=== PATIENT | female | born 1995 | race Caucasian/White ===

== ENCOUNTER 2016-10-28 14:59 | Emergency (ER) | payer OTHER ==
[2016-10-28 17:00] LABS: BASOPHIL 0.1 % (0-2); EOSINOPHIL 1.1 % (0-5); MCH 32.9 pg (25.0-31.0); MCV 94.1 fL (78.0-100.0); MONOCYTE 5.4 % (0-12); MPV 10.1 fL (6.0-9.5); NEUTROPHIL 75.4 % (41-80); PLT 259 K/uL (150-400); RBC 4.25 M/uL (4.20-5.40); RDW 12.3 % (11.5-14.0); WBC 9.7 K/uL (4.0-10.5)
[2016-10-28 17:13] LABS: ALBUMIN 4.6 g/dL (3.5-5.0); BILIRUBIN - TOTAL 0.4 mg/dL (0.1-1.0); CREATININE 0.8 mg/dL (0.5-1.0); GLOBULIN (CALCULATION) 2.3 g/dL (2.2-4.2); TOTAL PROTEIN 6.9 g/dL (6.4-8.3)
[2016-10-28 17:41] LABS: BILIRUBIN NEGATIVE (NEGATIVE); BLOOD 1+ Ery/uL (NEGATIVE); CLARITY CLEAR (CLEAR); COLOR YELLOW (YELLOW); GLUCOSE (U) NORMAL (NORMAL); KETONE (U) NEGATIVE (NEGATIVE); LEUKOCYTES NEGATIVE Leu/uL (NEGATIVE); NITRITE NEGATIVE (NEGATIVE); PROTEIN NEGATIVE (NEGATIVE); SPECIFIC GRAVITY 1.015 (1.001-1.030); UROBILINOGEN 0.2 mg/dL (0.2-1.0); pH 7.5 (5.0-9.0)
[2016-10-28 17:57] LABS: BACTERIA TRACE; URINARY WBC RARE
== END 2016-10-28 18:16 | disposition home or self-care (01) ==
LOC: FER 14:59
PROVIDERS: Nurse Practitioner
DX: O20.0 Threatened abortion (principal); Z88.0 Allergy status to penicillin; Z88.1 Allergy status to other antibiotic agents; Z88.6 Allergy status to analgesic agent; Z88.8 Allergy status to other drugs, medicaments and biological substances; Z3A.01 Less than 8 weeks gestation of pregnancy
CPT/HCPCS: 36415; 76817; 80053; 81001; 84702; 85025; 87210

== ENCOUNTER 2017-01-15 23:54 | Emergency (ER) | payer OTHER ==
[2017-01-16 01:01] LABS: BASOPHIL 0.2 % (0-2); EOSINOPHIL 1.2 % (0-5); HCT 40.4 % (37.0-47.0); HGB 14.5 g/dl (12.5-16.0); LYMPHOCYTE 18.1 % (15-48); MCH 32.9 pg (25.0-31.0); MCHC 35.9 g/dL (32.0-36.0); MCV 91.6 fL (78.0-100.0); MONOCYTE 7.4 % (0-12); MPV 9.9 fL (6.0-9.5); NEUTROPHIL 73.1 % (41-80); PLT 228 K/uL (150-400); RBC 4.41 M/uL (4.20-5.40); RDW 12.4 % (11.5-14.0)
[2017-01-16 01:02] LABS: WBC 12.2 K/uL (4.0-10.5)
[2017-01-16 01:18] LABS: ALBUMIN 4.6 g/dL (3.5-5.0); BILIRUBIN - TOTAL 0.3 mg/dL (0.1-1.0); CREATININE 0.6 mg/dL (0.5-1.0); GLOBULIN (CALCULATION) 2.2 g/dL (2.2-4.2); TOTAL PROTEIN 6.8 g/dL (6.4-8.3)
[2017-01-16 01:51] LABS: BILIRUBIN NEGATIVE (NEGATIVE); BLOOD NEGATIVE Ery/uL (NEGATIVE); CLARITY CLEAR (CLEAR); COLOR YELLOW (YELLOW); GLUCOSE (U) NORMAL (NORMAL); KETONE (U) NEGATIVE (NEGATIVE); LEUKOCYTES NEGATIVE Leu/uL (NEGATIVE); NITRITE NEGATIVE (NEGATIVE); PROTEIN NEGATIVE (NEGATIVE); UROBILINOGEN 0.2 mg/dL (0.2-1.0)
== END 2017-01-16 05:54 | disposition home or self-care (01) ==
LOC: FER 23:54
PROVIDERS: Emergency Medicine Emergency Medical Services
DX: O99.611 Diseases of the digestive system complicating pregnancy, first trimester (principal); K80.50 Calculus of bile duct without cholangitis or cholecystitis without obstruction; O99.511 Diseases of the respiratory system complicating pregnancy, first trimester; J45.909 Unspecified asthma, uncomplicated; O99.331 Smoking (tobacco) complicating pregnancy, first trimester; Z88.0 Allergy status to penicillin; Z88.1 Allergy status to other antibiotic agents; Z88.6 Allergy status to analgesic agent; Z88.8 Allergy status to other drugs, medicaments and biological substances; Z3A.01 Less than 8 weeks gestation of pregnancy
CPT/HCPCS: 36415; 80053; 81003; 82150; 83690; 84702; 85025